=== PATIENT | male | born 1945 | race Caucasian/White ===

== ENCOUNTER 2025-01-03 06:00 | Day surgery (SDC) | payer OTHER, MEDICARE ==
[2024-12-28 13:29] VITALS: BMI 28.1
[2025-01-03] MEDS ORDERED: TETRACAINE 0.5% OPHTH SOLN 2 ML BOTTLE ONE (07:16)
[2025-01-03] MEDS ORDERED: ERYTHROMYCIN 0.5% OPHTHALMIC OINTMENT 3.5 GM TUBE ONE (07:16)
[2025-01-03] MEDS ORDERED: BUPIVACAINE HCL/PF 0.5% (5MG/ML) 10 ML VIAL ONE (07:17)
[2025-01-03] MEDS ORDERED: POVIDONE-IODINE 5% OPHTHALMIC PREP 30 ML SOLUTION ONE (07:17)
[2025-01-03] MEDS ORDERED: LIDOCAINE 1%/EPI 1:100000 (20 ML MULTI DOSE VIAL) ONE (07:17)
[2025-01-03] MEDS ORDERED: ONDANSETRON 4 MG/2 ML VIAL ONE (07:19)
[2025-01-03] MEDS ORDERED: PROPOFOL 60 ML ONE (07:20)
[2025-01-03] MEDS ORDERED: MIDAZOLAM HCL 2 MG/2 ML SINGLE DOSE VIAL ONE (07:20)
[2025-01-03] MEDS ORDERED: ACETAMINOPHEN INJECTION 100 ML ONE (07:31)
[2025-01-03] MEDS ORDERED: FAMOTIDINE 20 MG/50 ML IVPB 20 MG/50 ML MG IVPB ONE (07:31)
[2025-01-03] MEDS ORDERED: DEXMEDETOMIDINE HCL 200 MCG/2 ML IVPB ONE (07:31)
[2025-01-03] MEDS ORDERED: SUCCINYLCHOLINE CHLORIDE 200 MG/10 ML SYRINGE ONE (07:41)
[2025-01-03] MEDS ORDERED: PROPOFOL 40 ML ONE (09:00)
[2025-01-03] MEDS ORDERED: PROPOFOL 20 ML ONE (09:55)
[2025-01-03] MEDS ORDERED: ONDANSETRON 4 MG/2 ML VIAL IVPUSH PRN (11:32)
[2025-01-03] MEDS ORDERED: LACTATED RINGERS SOLUTION 1,000 ML IV SCH (11:45)
[2025-01-03 11:46] VITALS: RESP 16
[2025-01-03 12:09] VITALS: PULSE 62
[2025-01-03 13:44] VITALS: TEMP 97.1
[2025-01-03 13:49] VITALS: BP 112/56
== END 2025-01-03 13:35 | disposition home or self-care (01) ==
LOC: FASU 06:00
PROVIDERS: ATTEND Ophthalmology
PROC: 08SR0ZZ Reposition Left Lower Eyelid, Open Approach (ICD-10-PCS; 2025-01-03)
PROC: 08SQ0ZZ Reposition Right Lower Eyelid, Open Approach (ICD-10-PCS; 2025-01-03)
PROC: 08SRXZZ Reposition Left Lower Eyelid, External Approach (ICD-10-PCS; principal; 2025-01-03 08:08)
PROC: 08SQXZZ Reposition Right Lower Eyelid, External Approach (ICD-10-PCS; 2025-01-03 08:08)
DX: H02.102 Unspecified ectropion of right lower eyelid (principal); H02.105 Unspecified ectropion of left lower eyelid
CPT/HCPCS: 94760